=== PATIENT | male | born 1965 | race Caucasian/White ===

== ENCOUNTER 2016-09-10 07:16 | Day surgery (SDC) | payer OTHER ==
[2016-09-10] MEDS ORDERED: Lactated Ringer's 500 ML IV ONE (07:50)
[2016-09-10] MEDS ORDERED: Propofol 10 mg/ml Inj (20 ML) ONE (08:31)
[2016-09-10 09:12] VITALS: TEMP 97.2; O2SAT 100
[2016-09-10 09:13] VITALS: BP 131/84; PULSE 77; RESP 15
== END 2016-09-10 09:28 | disposition home or self-care (01) ==
LOC: H.ENDO 07:16
PROVIDERS: ATTEND Internal Medicine Gastroenterology
DX: Z12.11 Encounter for screening for malignant neoplasm of colon (principal); K64.8 Other hemorrhoids